=== PATIENT | male | born 1945 | race Caucasian/White ===

== ENCOUNTER 2017-10-27 14:21 | Emergency (ER) | payer BC, MEDICARE ==
[2017-10-27] MEDS ORDERED: Adacel (T-DAP) 0.5 ML VIAL ONE (14:51)
[2017-10-27] MEDS ORDERED: Triple Antibiotic Oint 1 GM Packet ONE (15:06)
== END 2017-10-27 15:10 | disposition home or self-care (01) ==
LOC: MADERS 14:21
DX: S01.312A Laceration without foreign body of left ear, initial encounter (principal); I10 Essential (primary) hypertension; E78.5 Hyperlipidemia, unspecified; Z87.891 Personal history of nicotine dependence; Z79.82 Long term (current) use of aspirin; Z79.899 Other long term (current) drug therapy; W26.8XXA Contact with other sharp object(s), not elsewhere classified, initial encounter
CPT/HCPCS: 90471; 90715

== ENCOUNTER 2018-04-12 13:55 | Emergency (ER) | payer MEDICARE | END 2018-04-12 14:15 | disposition home or self-care (01) | LOC: MADERS 13:55 | DX: K90.41 Non-celiac gluten sensitivity (principal); E78.5 Hyperlipidemia, unspecified; I10 Essential (primary) hypertension; Z87.891 Personal history of nicotine dependence; Z79.899 Other long term (current) drug therapy; Z79.82 Long term (current) use of aspirin | CPT/HCPCS: 99283 ==

== ENCOUNTER 2018-05-25 08:55 | Outpatient (CLI) | payer OTHER, MEDICARE ==
[2018-05-25 13:09] LABS: Bilirubin Negative (Negative); Blood, Urine Negative (Negative); Clarity Clear (Clear); Glucose, Urine (Dipstick) Negative (Negative); Leukocyte Negative (Negative); Nitrite Negative (Negative); Protein, Urine (Dipstick) Negative (Neg-Trace); Specific Gravity, Urine 1.015 (1.005-1.030); Urobilinogen 0.2 mg/dL (0.2-1.0)
[2018-05-25 13:12] LABS: Urine Culture Reflex No No
[2018-05-25 13:23] LABS: Bacteria/HPF Rare-Few HPF (None Seen); RBC/HPF 0-3 HPF (0-3); Squamous Epithelial 0-3 HPF (0-3); WBC/HPF 0-3 HPF (0-3)
[2018-05-25 13:27] LABS: #Basophils 0.1 thou/uL (0.0-0.2); #Eosinphils 0.2 thou/uL (0.0-0.7); #Lymphocytes 1.7 thou/uL (1.20-3.40); #Monocytes 0.7 thou/uL (0.11-0.59); #Neutrophils 4.9 thou/uL (1.40-6.50); %Eosinophils 2.6 % (0.0-10.0); %Lymphocytes 22.7 % (21.0-51.0); %Monocytes 8.7 % (0.0-10.0); Hemoglobin 13.2 g/dL (14.0-18.0); Mean Corpuscular HGB CONC 32.8 g/dL (32.0-36.0); Mean Corpuscular Volume 91.6 fL (78.0-98.0); Mean Platelet Volume 6.7 fL (7.4-10.4); Platelet Count 214 thou/uL (130-400); RBC Distribution Width 12.6 % (11.5-14.5); White Blood Cell (WBC) Count 7.6 thou/uL (4.8-10.8)
[2018-05-25 13:34] LABS: ALT (SGPT) 15 U/L (8-55); AST (SGOT) 22 U/L (5-34); Albumin 4.4 g/dL (3.4-4.8); Alkaline Phosphatase 82 U/L (40-150); Anion Gap 12 mmol/L (10-20); BUN (Urea Nitrogen) 20 mg/dL (8.4-25.7); Bilirubin, Total 0.8 mg/dL (0.2-1.2); Calc. Creatinine Clearance 0 mL/min (70-130); Calcium 9.4 mg/dL (7.8-10.44); Carbon Dioxide 28 mmol/L (23-31); Cardiac Risk 2.6 (Less than 4.5); Chloride 105 mmol/L (98-107); Cholesterol 131 mg/dl (< 200 Desired); Estimated GFR-MDRD 87; Glucose 96 mg/dL (83-110); HDL Cholesterol 50 mg/dL (>60 Neg Risk); LDL Cholesterol, Calculated 71 mg/dL; Potassium 4.4 mmol/L (3.5-5.1); Protein, Total 7.4 g/dL (5.8-8.1); Sodium 141 mmol/L (136-145); Triglycerides 49 mg/dL (Less than 150)
[2018-05-25 18:40] LABS: Hemoglobin A1c 5.4 % (4.0-6.0)
[2018-05-25 19:08] LABS: Albumin (w/Testosterone Panel) 4.4 g/dL
[2018-05-25 19:25] LABS: Testosterone, Free 18.3 pg/mL (47-244); Testosterone, Total 131.7 ng/dL (221-716)
== END 2018-05-25 08:56 | disposition home or self-care (01) ==
LOC: MADLAB 08:55
PROVIDERS: ATTEND Family Medicine
DX: E29.1 Testicular hypofunction (principal); I10 Essential (primary) hypertension; R94.4 Abnormal results of kidney function studies; R73.01 Impaired fasting glucose
CPT/HCPCS: 36415; 80053; 80061; 81001; 83036; 84270; 84403; 84443; 85025

== ENCOUNTER 2019-10-18 21:25 | Emergency (ER) | payer OTHER, MEDICARE ==
[2019-10-18] MEDS ORDERED: cloNIDine 0.1mg/24 Hour PATCH ONE (22:06)
[2019-10-18] MEDS ORDERED: cloNIDine 0.1 MG TAB ONE (22:07)
--- NOTE | 2019-10-18 22:57 | CT ---
CT HEAD WITHOUT CONTRAST: Date; 10/18/2019 HISTORY: Nausea. Headache. High blood pressure. No comparisons. FINDINGS: Ventricles have normal size and position. Mild chronic ischemic white matter change. No mass, infarct , hemorrhage, or edema. Sinuses and mastoids are clear. IMPRESSION: No acute process identified. POS: [facility]
== END 2019-10-18 23:32 | disposition home or self-care (01) ==
LOC: MADERS 21:25
DX: I10 Essential (primary) hypertension (principal); E78.5 Hyperlipidemia, unspecified; Z87.891 Personal history of nicotine dependence
CPT/HCPCS: 70450

== ENCOUNTER 2019-11-16 19:53 | Emergency (ER) | payer MEDICARE, OTHER ==
[2019-11-16] MEDS ORDERED: Lidocaine 1% 20 ML MDV ONE (20:13)
== END 2019-11-16 20:30 | disposition home or self-care (01) ==
LOC: MADERS 19:53
DX: S60.454A Superficial foreign body of right ring finger, initial encounter (principal); I10 Essential (primary) hypertension; E78.5 Hyperlipidemia, unspecified; E78.00 Pure hypercholesterolemia, unspecified; Z87.891 Personal history of nicotine dependence; W45.8XXA Other foreign body or object entering through skin, initial encounter; Z79.899 Other long term (current) drug therapy
CPT/HCPCS: 99283; J2001